=== PATIENT | male | born 1995 | race Caucasian/White ===

== ENCOUNTER → 2016-09-03 | Day surgery (SDC) | payer OTHER ==
[~2016-09-03] MED LIST: ACETAMINOPHEN 1000 MG/100 ML VIAL IV ONE; BUPIVACAINE/EPINEPHRINE 0.25% PF 30 ML VIAL ONE; IBUP800T23 PO; KETOROLAC TROMETHAMINE 30 MG/ML (IVP) VIAL IV PUSH ONE; LACTATED RINGER'S 1000 ML INJ 1,000 ML ONE; MIDAZOLAM HCL 2 MG/2 ML VIAL ONE; ONDANSETRON HCL 4 MG/2 ML VIAL IV PUSH ONE; PROPOFOL 200 MG/20 ML AMP IV ONE; Z.0.NO CURRENT MEDS; ceFAZolin 2 GM PREMIX 50 ML ONE; oxyCODONE/ACETAMINOPHEN 5 MG/325 MG TAB ONE
--- NOTE | 2016-09-03 11:45 | TN ---
cc: SHIRLEY LOPEZ MD DATE OF SURGERY: 09/03/2016 PREOPERATIVE DIAGNOSIS Left inguinal hernia. POSTOPERATIVE DIAGNOSIS Left inguinal hernia. PROCEDURE Laparoscopic left inguinal hernia repair with mesh. SURGEON Shirley Lopez MD [employer] ATTENDANT Staff. ESTIMATED BLOOD LOSS 5 ccs. COMPLICATIONS None apparent. ANESTHESIA General endotracheal anesthesia. OPERATIVE FINDINGS The patient had a moderate-sized indirect left inguinal hernia which was fully reduced. PROCEDURE IN DETAIL The patient was taken to the operating room and placed in the supine position. The right arm was tucked. General endotracheal anesthesia was induced and the abdomen was prepped and draped in usual sterile fashion. A surgical time-out was performed to verify correct patient, procedure and site and appropriate perioperative antibiotics were administered. Local anesthetic was injected inferior to the umbilicus just to the left of midline and a 2 cm incision was made. Blunt dissection was carried out down to the underlying fascia which was incised vertically. Unfortunately, this appeared to be in the midline, not to the left of midline and therefore this was closed with simple interrupted 0 Vicryl suture. A second fascial incision was made 1 cm to the left and this clearly incised only the anterior rectus sheath. The space posterior to the rectus muscle was developed and the inflating balloon placed. The extraperitoneal space was insufflated. Next, the structural balloon was placed and the extraperitoneal space insufflated to 11 mmHg. A 5 mm port was placed in the suprapubic position and one superior to that in the midline. Attention was then turned to the left inguinal area. The lateral space was opened up. Heriberto's ligament was identified. The direct space was identified and there was no hernia present. The spermatic cord area was investigated and there was an indirect hernia sac present. It was moderate in size and it was gently carefully reduced and dissected free from the spermatic cord structures. The peritoneum was brought towards the patient's head from lateral all the way to the medial. At this point the entire inguinal floor was clear and the anatomy identified. A 15 x 15 cm ultra pro advanced mesh was cut to 12 x 15 cm and placed into the left inguinal space. This was secured in place at Heriberto's ligament, superiorly at the medial rectus muscle, superolaterally and laterally just past the epigastric vessels. Care was taken to avoid the epigastric and iliac vessels as well as the lateral nerves. The entire inguinal floor was well covered. The extraperitoneal space was allowed to desufflate. The anterior fascia was closed with a running 2-0 Vicryl suture. Skin was closed with subcuticular 4-0 Monocryl as well as Mastisol and Steri-Strips. The patient tolerated the procedure well and was extubated and taken to PACU in stable condition. MD JAYLON Razo/TLL /11:23 AM /11:34 AM
== END | disposition home or self-care (01) ==
LOC: ESDC 08:02
PROVIDERS: ATTEND Surgery
DX: K40.90 Unilateral inguinal hernia, without obstruction or gangrene, not specified as recurrent (principal)
CPT/HCPCS: 00840; 49650; C1727; C1781; J0131; J0690; J1885; J2250; J2405; J3010; J7120

== ENCOUNTER 2017-11-24 14:03 | Emergency (ER) | payer OTHER ==
[~2017-11-24] VITALS: Ht 180.3 cm; Wt 100.0 kg
[~2017-11-24 14:03] MED LIST changes: -ACETAMINOPHEN 1000 MG/100 ML VIAL IV ONE; -BUPIVACAINE/EPINEPHRINE 0.25% PF 30 ML VIAL ONE; -KETOROLAC TROMETHAMINE 30 MG/ML (IVP) VIAL IV PUSH ONE; -LACTATED RINGER'S 1000 ML INJ 1,000 ML ONE; -MIDAZOLAM HCL 2 MG/2 ML VIAL ONE; -ONDANSETRON HCL 4 MG/2 ML VIAL IV PUSH ONE; -PROPOFOL 200 MG/20 ML AMP IV ONE; -ceFAZolin 2 GM PREMIX 50 ML ONE; -oxyCODONE/ACETAMINOPHEN 5 MG/325 MG TAB ONE
[2017-11-24 14:40] VITALS: TEMP 98.5
[2017-11-24] MEDS ORDERED: SODIUM CHLORIDE 0.9% FLUSH 10 ML FLUSH IVF PRN (15:00)
[2017-11-24] MEDS ORDERED: ONDANSETRON HCL 4 MG/2 ML VIAL IVP ONE (15:00)
[2017-11-24] MEDS ORDERED: HYDROmorphone HCL PF 1 MG/ML VIAL IVS ONE (15:00)
[2017-11-24] MEDS ORDERED: HYDROmorphone HCL PF 2 MG/ML VIAL IV ONE (15:00)
[2017-11-24 15:01] VITALS: O2SAT 99
[2017-11-24] MEDS ORDERED: HYDROmorphone HCL PF 2 MG/ML VIAL IVS ONE (15:15)
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
[2017-11-24 15:23] LABS: AUTOMATED NEUTROPHIL # 3.5 TH/MM3 (1.8-7.7); BASOPHIL % 0.5 % (0.0-2.0); EOSINOPHIL # 0.3 TH/MM3 (0-0.4); HEMATOCRIT 42.4 % (39.0-51.0); HEMOGLOBIN 14.3 GM/DL (13.0-17.0); LYMPH % 31.3 % (9.0-44.0); MEAN CELL VOLUME 90.4 FL (80.0-100.0); MEAN CORPUSCULAR HEMOGLOBIN 30.5 PG (27.0-34.0); MEAN CORPUSCULAR HGB CONC 33.8 % (32.0-36.0); MEAN PLATELET VOLUME 8.6 FL (7.0-11.0); MONO % 9.2 % (0.0-8.0); MONOCYTE # 0.6 TH/MM3 (0-0.9); PLATELET COUNT 242 TH/MM3 (150-450); RED BLOOD COUNT 4.69 MIL/MM3 (4.50-5.90); RED CELL DISTRIBUTION WIDTH 13.3 % (11.6-17.2); WHITE BLOOD COUNT 6.4 TH/MM3 (4.0-11.0)
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
--- NOTE | 2017-11-24 15:38 | RADRPT ---
EXAM DATE/TIME: 11/24/2017 15:21 [facility] COMPARISON: No previous studies available for comparison. INDICATIONS : Left hand pain, caught in pipe MEDICAL HISTORY : None. SURGICAL HISTORY : Hardware placement left hand ENCOUNTER: Initial ACUITY: 1 day PAIN SCORE: 0/10 LOCATION: Hand FINDINGS: Three view examination of the left hand demonstrates the fourth and fifth metacarpal bases are dorsal ly dislocated from the articulation with the hamate. The carpal bones appear intact. The interphal angeal and metacarpophalangeal joints are intact. Bony mineralization is normal. CONCLUSION: Fourth and fifth metacarpal bases are dorsally dislocated. Zander Bullock MD on November 24, 2017 at 15:35 Board Certified Radiologist. This report was verified electronically.
[2017-11-24 15:43] LABS: BICARBONATE 28.1 MEQ/L (21.0-32.0); CALCIUM 8.5 MG/DL (8.5-10.1); CREATININE 1.06 MG/DL (0.60-1.30)
[2017-11-24 15:45] LABS: PROTHROMBIN TIME - PATIENT 10.5 SEC (9.8-11.6)
[2017-11-24] MEDS ORDERED: ETOMIDATE 40 MG/20 ML VIAL IV PUSH ONE (16:30)
[2017-11-24 16:45] VITALS: O2SAT 100
[2017-11-24] MEDS ORDERED: ONDANSETRON HCL 4 MG/2 ML VIAL IV PUSH ONE (17:00)
--- NOTE | 2017-11-24 17:42 | RADRPT ---
EXAM DATE/TIME: 11/24/2017 17:03 [facility] COMPARISON: HAND LEFT COMPLETE ([id number]), November 24, 2017, 15:21. INDICATIONS : Post reduction left hand MEDICAL HISTORY : None. SURGICAL HISTORY : Hardware placement left hand ENCOUNTER: Subsequent ACUITY: 1 day PAIN SCORE: 2/10 LOCATION: Left Hand FINDINGS: Three view examination of the left hand successful reduction of the previously dislocated fourth and fifth metacarpals. No obvious associated fracture. Sideplate and osseous screws are again identified along the diaphysis of the fourth metacarpal. CONCLUSION: Successful reduction of previously dislocated fourth and fifth metacarpals. No fracture identifi ed. Morgan George MD on November 24, 2017 at 17:24 Board Certified Radiologist. This report was verified electronically.
[2017-11-24] MEDS ORDERED: IBUP1TAB7 PO (17:57)
== END 2017-11-24 18:15 | disposition home or self-care (01) ==
LOC: NEPE 14:03
DX: S63.065A Dislocation of metacarpal (bone), proximal end of left hand, initial encounter (principal); W22.09XA Striking against other stationary object, initial encounter
CPT/HCPCS: 26770; 73090; 73130; 80048; 85025; 85610; 85730; 96374; 96375; 96376; 99284; J1170; J2405